=== PATIENT | female | born 1995 | race Caucasian/White ===

== ENCOUNTER 2016-07-22 02:31 | Emergency (ER) | payer BC ==
[~2016-07-22] VITALS: Ht 172.7 cm; Wt 67.2 kg
[2016-07-22] MEDS ORDERED: LIDOCAINE 1%, 20ML ONE (04:09)
[2016-07-22] MEDS ORDERED: DIPH,PERTUSS(ACELL),TET VAC/PF 0.5 ML IM-VACC ONE ×2 (04:20→04:30)
[2016-07-22] MEDS ORDERED: BACITRACIN ZINC OINT 500U/GM, 0.9 GM ONE (04:26)
[2016-07-22] MEDS ORDERED: LIDOCAINE 1%, 20ML SQ ONE (04:30)
[2016-07-22 04:34] VITALS: BP 109/57
== END 2016-07-22 04:36 | disposition home or self-care (01) ==
LOC: ED 04:30
DX: S61.012A Laceration without foreign body of left thumb without damage to nail, initial encounter (principal); W26.0XXA Contact with knife, initial encounter; Y93.89 Activity, other specified; Y92.89 Other specified places as the place of occurrence of the external cause; Y99.8 Other external cause status
CPT/HCPCS: 12001; 90471; 90715

== ENCOUNTER 2018-05-12 10:50 | Inpatient (IN) | payer BC ==
[~2018-05-12] VITALS: Ht 172.7 cm; Wt 75.9 kg
[2018-05-12] MEDS ORDERED: MISOPROSTOL 25 MCG TABLET ONE ×3 (13:00→18:11)
[2018-05-12] MEDS: MISOPROSTOL 25 MCG TABLET VG SCH ×2 (13:10→18:25)
[2018-05-12] MEDS ORDERED: OXYTOCIN 30U/ 0.9% NaCL 500ML 500 ML IV PRN (13:15)
[2018-05-12] MEDS ORDERED: OXYTOCIN 30U/ 0.9% NaCL 500ML 500 ML IV ONE (13:15)
[2018-05-12] MEDS: D5%-LACTATED RINGERS 1,000 ML IV SCH ×2 (13:15→21:15)
[2018-05-12] MEDS: LACTATED RINGERS 1,000 ML IV SCH ×4 (13:15→23:22)
[2018-05-12] MEDS ORDERED: OXYcodone/APAP 10/325MG TABLET PO PRN (13:30)
[2018-05-12] MEDS ORDERED: CALCIUM CARBONATE 500 MG TAB.CHEW PO PRN (13:30)
[2018-05-12] MEDS ORDERED: METOCLOPRAMIDE 5 MG/ML, 2ML IVPush PRN (13:30)
[2018-05-12] MEDS ORDERED: RHOGAM FROM BLOOD BANK 1 NOTE EA IM/IV PRN (13:30)
[2018-05-12] MEDS ORDERED: FENTANYL PF 100 MCG/2ML IVPush PRN (13:30)
[2018-05-12] MEDS ORDERED: IBUPROFEN 800 MG TABLET PO PRN (13:30)
[2018-05-12] MEDS ORDERED: SODIUM CITRATE/CITRIC ACID 30 ML UDC PO PRN (13:30)
[2018-05-12] MEDS ORDERED: ONDANSETRON 2MG/ML, 2ML IVPush PRN (13:30)
[2018-05-12] MEDS ORDERED: METHYLERGONOVINE 0.2 MG/ML IM PRN (13:30)
[2018-05-12] MEDS ORDERED: OXYcodone/APAP 5/325MG TABLET PO PRN (13:30)
[2018-05-12] MEDS ORDERED: SODIUM CHLORIDE FLUSH 10ML SYR IVF PRN (13:30)
[2018-05-12] MEDS ORDERED: morphine SULFATE 10 MG/ML, 1ML IVPush PRN (13:30)
[2018-05-12] MEDS ORDERED: ACETAMINOPHEN 325 MG TABLET PO PRN ×2 (13:30)
[2018-05-12] MEDS ORDERED: IBUPROFEN 600 MG TABLET PO PRN (13:30)
[2018-05-12] MEDS ORDERED: MISOPROSTOL 200 MCG TABLET PR PRN (13:30)
[2018-05-12 14:04] LABS: BASOPHILS # (AUTO) 0.04 x10^3/uL (0-0.1); BASOPHILS % (AUTO) 0 % (0-1); EOSINOPHILS # (AUTO) 0.03 x10^3/uL (0-0.4); EOSINOPHILS % (AUTO) 0 % (1-7); LYMPHOCYTES # (AUTO) 1.01 x10^3/uL (1-3.4); LYMPHOCYTES % (AUTO) 8 % (22-44); MD NO; MEAN CORPUSCULAR HEMOGLOBIN 30.6 pg (27.0-34.8); MEAN CORPUSCULAR HGB CONC 33.8 g/dL (32.4-35.8); MEAN CORPUSCULAR VOLUME 90.4 fL (80-100); MEAN PLATELET VOLUME 8.2 fL (7.4-10.4); MONOCYTES # (AUTO) 0.49 x10^3/uL (0.2-0.8); MONOCYTES % (AUTO) 4 % (2-9); NEUTROPHILS # (AUTO) 10.94 x10^3/uL (1.8-6.8); NEUTROPHILS % (AUTO) 88 % (42-75); PLATELET COUNT 289 x10^3/uL (130-400); RED BLOOD COUNT 5.11 x10^6/uL (3.82-5.3); RED CELL DISTRIBUTION WIDTH 12.5 % (9.6-15.2)
[2018-05-12 14:14] LABS: CREATININE 0.54 mg/dL (0.55-1.02)
[2018-05-12 14:23] LABS: FREE T4 (FREE THYROXINE) 0.94 ng/dL (0.76-1.46)
[2018-05-12] MEDS ORDERED: MISOPROSTOL 200 MCG TABLET ONE (14:42)
[2018-05-12] MEDS ORDERED: LIDOCAINE 1%, 20ML ONE (14:42)
[2018-05-12] MEDS ORDERED: OXYTOCIN 30U/ 0.9% NaCL 500ML 500 ML ONE (14:42)
[2018-05-12 15:30] LABS: INTERNATIONAL NORMALIZED RATIO 0.9 (0.93-1.1); PROTHROMBIN TIME 9.6 Seconds (9.6-11.5)
[2018-05-12 16:08] LABS: AMPHETAMINE SCREEN, URINE Negative (Negative); BARBITURATE SCREEN, URINE Negative (Negative); BENZODIAZEPINE SCREEN, URINE Negative (Negative); CANNABINOID SCREEN, URINE Positive (Negative); COCAINE SCREEN, URINE Negative (Negative); METHADONE SCREEN, URINE Negative (Negative); OPIATE SCREEN, URINE Negative (Negative)
[2018-05-12 19:30] VITALS: BP 109/62
[2018-05-12] MEDS ORDERED: FENTANYL PF 100 MCG/2ML ONE (22:50)
[2018-05-12] MEDS: FENTANYL PF 100 MCG/2ML IVPush PRN (22:54)
[2018-05-12 23:30] VITALS: BP 110/61
[2018-05-13] MEDS ORDERED: OXYTOCIN 30U/ 0.9% NaCL 500ML 500 ML IV PRN (00:06)
[2018-05-13] MEDS ORDERED: FENTANYL PF 100 MCG/2ML ONE ×3 (00:35→02:59)
[2018-05-13] MEDS: FENTANYL PF 100 MCG/2ML IVPush PRN ×3 (00:39→03:00)
[2018-05-13] MEDS: MISOPROSTOL 25 MCG TABLET VG SCH (01:30)
[2018-05-13] MEDS ORDERED: OXYTOCIN 30U/ 0.9% NaCL 500ML 500 ML IV SCH (03:29)
[2018-05-13] MEDS ORDERED: MISOPROSTOL 200 MCG TABLET PR PRN (03:30)
[2018-05-13] MEDS ORDERED: MEASLES,MUMPS&RUBELLA VACC/PF 0.5 ML SQ PRN (03:30)
[2018-05-13] MEDS ORDERED: OXYcodone/APAP 5/325MG TABLET PO PRN ×2 (03:30)
[2018-05-13] MEDS ORDERED: RHOGAM FROM BLOOD BANK 1 NOTE EA IM/IV ONE (03:30)
[2018-05-13] MEDS ORDERED: DOCUSATE 100 MG CAPSULE PO PRN (03:30)
[2018-05-13] MEDS ORDERED: IBUPROFEN 600 MG TABLET PO PRN (03:30)
[2018-05-13] MEDS ORDERED: METHYLERGONOVINE 0.2 MG/ML IM PRN (03:30)
[2018-05-13] MEDS ORDERED: ACETAMINOPHEN 325 MG TABLET PO PRN (03:30)
[2018-05-13] MEDS ORDERED: CARBOPROST TROMETHAMINE 250 MCG/ML, 1ML IM PRN (03:30)
[2018-05-13] MEDS ORDERED: OXYTOCIN 30U/ 0.9% NaCL 500ML 500 ML ONE (04:06)
[2018-05-13] MEDS: LACTATED RINGERS 1,000 ML IV SCH ×2 (05:15)
[2018-05-13] MEDS: D5%-LACTATED RINGERS 1,000 ML IV SCH (05:15)
[2018-05-13 05:52] VITALS: BP 124/75
[2018-05-13] MEDS ORDERED: PRENATAL VIT/IRON/FA 1 EACH TABLET PO SCH (09:00)
[2018-05-13 11:41] LABS: MEAN CORPUSCULAR HEMOGLOBIN 30.3 pg (27.0-34.8); MEAN CORPUSCULAR HGB CONC 33.8 g/dL (32.4-35.8); MEAN CORPUSCULAR VOLUME 89.6 fL (80-100); MEAN PLATELET VOLUME 7.7 fL (7.4-10.4); PLATELET COUNT 329 x10^3/uL (130-400); RED BLOOD COUNT 4.47 x10^6/uL (3.82-5.3); RED CELL DISTRIBUTION WIDTH 12.6 % (9.6-15.2)
[2018-05-13 12:12] LABS: BASOPHILS # (AUTO) 0.02 x10^3/uL (0-0.1); BASOPHILS % (AUTO) 0 % (0-1); EOSINOPHILS # (AUTO) 0.02 x10^3/uL (0-0.4); EOSINOPHILS % (AUTO) 0 % (1-7); LYMPHOCYTES # (AUTO) 1.39 x10^3/uL (1-3.4); LYMPHOCYTES % (AUTO) 8 % (22-44); MD SCAN; MONOCYTES # (AUTO) 0.96 x10^3/uL (0.2-0.8); MONOCYTES % (AUTO) 6 % (2-9); NEUTROPHILS # (AUTO) 15.09 x10^3/uL (1.8-6.8); NEUTROPHILS % (AUTO) 86 % (42-75)
[2018-05-13 20:28] VITALS: BP 114/63
[2018-05-13] MEDS ORDERED: SODIUM CITRATE/CITRIC ACID 30 ML UDC ONE (23:45)
[2018-05-13] MEDS ORDERED: METOCLOPRAMIDE 5 MG/ML, 2ML ONE (23:45)
== END 2018-05-14 13:05 | disposition home or self-care (01) | DRG 807 ==
LOC: LDOP 10:50 → LDIP 13:02
PROVIDERS: ADMIT Obstetrics & Gynecology; ATTEND Obstetrics & Gynecology
PROC: 10E0XZZ Delivery of Products of Conception, External Approach (ICD-10-PCS; principal; 2018-05-13)
PROC: 3E033VJ Introduction of Other Hormone into Peripheral Vein, Percutaneous Approach (ICD-10-PCS; 2018-05-13)
DX: O36.4XX0 Maternal care for intrauterine death, not applicable or unspecified (principal); Z37.1 Single stillbirth; O32.1XX0 Maternal care for breech presentation, not applicable or unspecified; Z3A.27 27 weeks gestation of pregnancy; Z87.891 Personal history of nicotine dependence
CPT/HCPCS: 36415; 76815; 80074; 80307; 81241; 82565; 83036; 84439; 84443; 85025; 85300; 85301; 85384; 85460; 85598; 85610; 85613; 85670; 85730; 85732; 86146; 86147; 86644; 86695; 86696; 86747; 86762; 86777; 86850; 86900; 87252; 88305; G0378; J2790; J3010; J2590; J7120

== ENCOUNTER 2019-07-30 16:45 | Emergency (ER) | payer BC, OTHER ==
[~2019-07-30] VITALS: Ht 172.7 cm; Wt 62.1 kg
[2019-07-30] MEDS ORDERED: PRENATAL VITAMINS PO (17:02)
--- NOTE | 2019-07-30 17:05 | NUR ---
PT AMBULATED TO ROOM, CHANGED INTO GOWN RESTING ON GURNEY, NAD, P/W/D, RESP WNL, CALL LIGHT WITHIN REACH, MAEx4, FCS no SOB, WCTM.
--- NOTE | 2019-07-30 17:11 | NUR ---
Dominic GONZALEZ at BS for eval and discussing POC. Pt ambulated with a smooth and steady gait to and from restroo, sent to lab, lab at BS. NAD, RESP WNL, given warm blanket for comfort. WCTM. waiting for lab results.
[2019-07-30 17:25] LABS: BASOPHILS # (AUTO) 0.03 x10^3/uL (0-0.1); BASOPHILS % (AUTO) 0 % (0-1); EOSINOPHILS # (AUTO) 0.11 x10^3/uL (0-0.4); EOSINOPHILS % (AUTO) 1 % (1-7); LYMPHOCYTES # (AUTO) 1.97 x10^3/uL (1-3.4); LYMPHOCYTES % (AUTO) 21 % (22-44); MD NO; MEAN CORPUSCULAR HEMOGLOBIN 30.6 pg (27.0-34.8); MEAN CORPUSCULAR HGB CONC 34.2 g/dL (32.4-35.8); MEAN CORPUSCULAR VOLUME 89.5 fL (80-100); MEAN PLATELET VOLUME 7.8 fL (7.4-10.4); MONOCYTES # (AUTO) 0.62 x10^3/uL (0.2-0.8); MONOCYTES % (AUTO) 7 % (2-9); NEUTROPHILS # (AUTO) 6.55 x10^3/uL (1.8-6.8); NEUTROPHILS % (AUTO) 71 % (42-75); PLATELET COUNT 302 x10^3/uL (130-400); RED BLOOD COUNT 4.51 x10^6/uL (3.82-5.3); RED CELL DISTRIBUTION WIDTH 13.5 % (9.6-15.2)
[2019-07-30 17:30] LABS: MICROSCOPIC NOT IND
[2019-07-30 17:37] LABS: ALANINE AMINOTRANSFERASE 21 U/L (12-78); ALBUMIN 3.8 g/dL (3.4-5.0); ANION GAP 6 mmol/L (5-15); CALCIUM 9.3 mg/dL (8.5-10.1); CHLORIDE 107 mmol/L (98-107); CREATININE 0.61 mg/dL (0.55-1.02); CULTURE INDICATED? NO
[2019-07-30 17:40] LABS: ALKALINE PHOSPHATASE 47 U/L (45-117); BILIRUBIN,TOTAL 0.4 mg/dL (0.2-1.0); TOTAL PROTEIN 7.7 g/dL (6.4-8.2)
--- NOTE | 2019-07-30 17:52 | NUR ---
Pt resting in [place], JORDAN, RESP WNL, VSS. Pt to US via [place].
[2019-07-30 18:29] VITALS: BP 106/63
--- NOTE | 2019-07-30 18:31 | NUR ---
Patient given discharge instructions and they have confirmed that they understand the instructions. Patient ambulatory with steady gait. Denies additional questions.
== END 2019-07-30 18:41 | disposition home or self-care (01) ==
LOC: ED 17:32
DX: O26.891 Other specified pregnancy related conditions, first trimester (principal); R10.13 Epigastric pain; Z87.891 Personal history of nicotine dependence; Z3A.11 11 weeks gestation of pregnancy
CPT/HCPCS: 36415; 76801; 80053; 81003; 83690; 85025; 99284

== ENCOUNTER 2019-12-02 17:50 | Outpatient (CLI) | payer BC, OTHER ==
[~2019-12-02] VITALS: Ht 172.7 cm; Wt 76.3 kg
[~2019-12-02 17:50] MED LIST: PRENATAL VITAMINS PO
[2019-12-02 18:25] VITALS: BP 117/66
[2019-12-02 18:28] LABS: MICROSCOPIC INDICATED
[2019-12-02] MEDS ORDERED: ASPI-496 PO (18:39)
[2019-12-02 19:33] LABS: BASOPHILS # (AUTO) 0.01 x10^3/uL (0-0.1); BASOPHILS % (AUTO) 0 % (0-1); EOSINOPHILS # (AUTO) 0.06 x10^3/uL (0-0.4); EOSINOPHILS % (AUTO) 1 % (1-7); LYMPHOCYTES % (AUTO) 14 % (22-44); MD NO; MEAN CORPUSCULAR HGB CONC 33.7 g/dL (32.4-35.8); MEAN PLATELET VOLUME 7.8 fL (7.4-10.4); MONOCYTES # (AUTO) 0.56 x10^3/uL (0.2-0.8); MONOCYTES % (AUTO) 5 % (2-9); NEUTROPHILS # (AUTO) 9.44 x10^3/uL (1.8-6.8); NEUTROPHILS % (AUTO) 80 % (42-75); PLATELET COUNT 233 x10^3/uL (130-400); RED CELL DISTRIBUTION WIDTH 13.1 % (9.6-15.2)
== END 2019-12-02 20:45 | disposition home or self-care (01) ==
LOC: LDOP 17:50
PROVIDERS: ATTEND Obstetrics & Gynecology
DX: O26.893 Other specified pregnancy related conditions, third trimester (principal); R10.9 Unspecified abdominal pain; Z3A.29 29 weeks gestation of pregnancy
CPT/HCPCS: 36415; 59025; 76705; 81001; 85025; 87086

== ENCOUNTER 2020-01-24 11:13 | Outpatient (CLI) | payer BC, OTHER ==
[~2020-01-24 11:13] MED LIST changes: +ASPI-496 PO
[2020-01-24 11:19] VITALS: BP 117/69
== END 2020-01-24 11:56 | disposition home or self-care (01) ==
LOC: LDOP 11:13
PROVIDERS: ATTEND Obstetrics & Gynecology
DX: O36.8130 Decreased fetal movements, third trimester, not applicable or unspecified (principal); Z3A.36 36 weeks gestation of pregnancy
CPT/HCPCS: 59025

== ENCOUNTER 2020-01-29 09:15 | Outpatient (CLI) | payer BC, OTHER ==
[~2020-01-29] VITALS: Ht 172.7 cm; Wt 80.9 kg
== END 2020-01-29 09:23 | disposition home or self-care (01) ==
LOC: LDOP 09:15
PROVIDERS: ATTEND Obstetrics & Gynecology
DX: O80 Encounter for full-term uncomplicated delivery (principal); Z3A.37 37 weeks gestation of pregnancy
CPT/HCPCS: 59025

== ENCOUNTER 2020-02-04 11:12 | Outpatient (CLI) | payer BC, OTHER | END 2020-02-04 12:15 | disposition home or self-care (01) | LOC: LDOP 11:12 | PROVIDERS: ATTEND Obstetrics & Gynecology | DX: O36.8130 Decreased fetal movements, third trimester, not applicable or unspecified (principal); Z3A.38 38 weeks gestation of pregnancy | CPT/HCPCS: 59025 ==

== ENCOUNTER 2020-02-08 12:12 | Inpatient (IN) | payer BC, OTHER ==
[~2020-02-08] VITALS: Ht 172.7 cm; Wt 83.0 kg
[2020-02-08] MEDS ORDERED: LIDOCAINE 1%, 20ML ONE (23:14)
[2020-02-08] MEDS ORDERED: MISOPROSTOL 25 MCG TABLET ONE (23:15)
[2020-02-08] MEDS ORDERED: OXYTOCIN 30U/ 0.9% NaCL 500ML 500 ML ONE (23:15)
[2020-02-08] MEDS ORDERED: MISOPROSTOL 200 MCG TABLET ONE (23:15)
[2020-02-08] MEDS ORDERED: D5%-LACTATED RINGERS 1,000 ML IV SCH (23:30)
[2020-02-08] MEDS ORDERED: TERBUTALINE 1 MG/ML, 1ML SQ PRN (23:30)
[2020-02-08] MEDS ORDERED: ALUMINUM/MAG/SIMETHICONE 30 ML UDC PO PRN (23:30)
[2020-02-08] MEDS ORDERED: OXYTOCIN 30U/ 0.9% NaCL 500ML 500 ML IV PRN (23:30)
[2020-02-08] MEDS ORDERED: SODIUM CHLORIDE FLUSH 10ML SYR IVF PRN (23:30)
[2020-02-08] MEDS ORDERED: METOCLOPRAMIDE 5 MG/ML, 2ML IVPush PRN (23:30)
[2020-02-08] MEDS ORDERED: MISOPROSTOL 25 MCG TABLET VG PRN (23:30)
[2020-02-08] MEDS ORDERED: ONDANSETRON 2MG/ML, 2ML IVPush PRN (23:30)
[2020-02-08] MEDS ORDERED: MISOPROSTOL 25 MCG TABLET PO PRN (23:30)
[2020-02-08] MEDS ORDERED: TERBUTALINE 1 MG/ML, 1ML IVPush PRN (23:30)
[2020-02-08] MEDS ORDERED: FENTANYL PF 100 MCG/2ML IV PRN (23:30)
[2020-02-08] MEDS ORDERED: OXYTOCIN 30U/ 0.9% NaCL 500ML 500 ML IV ONE (23:30)
[2020-02-08] MEDS ORDERED: CALCIUM CARBONATE 500 MG TAB.CHEW PO PRN (23:30)
[2020-02-08] MEDS ORDERED: LACTATED RINGERS 1,000 ML IV SCH (23:30)
[2020-02-08 23:37] LABS: BASOPHILS % (AUTO) 0 % (0-1); EOSINOPHILS % (AUTO) 1 % (1-7); LYMPHOCYTES % (AUTO) 18 % (22-44); MEAN CORPUSCULAR HEMOGLOBIN 30.9 pg (27.0-34.8); MEAN CORPUSCULAR HGB CONC 33.9 g/dL (32.4-35.8); MEAN PLATELET VOLUME 7.9 fL (7.4-10.4); MONOCYTES % (AUTO) 8 % (2-9); NEUTROPHILS % (AUTO) 73 % (42-75); PLATELET COUNT 263 x10^3/uL (130-400); RED BLOOD COUNT 4.44 x10^6/uL (3.82-5.3); RED CELL DISTRIBUTION WIDTH 12.8 % (9.6-15.2)
[2020-02-08 23:38] LABS: MD NO
[2020-02-09] MEDS ORDERED: MISOPROSTOL 25 MCG TABLET ONE (00:03)
[2020-02-09] MEDS ORDERED: FENTANYL PF 100 MCG/2ML ONE ×2 (14:48→16:58)
[2020-02-09] MEDS: FENTANYL PF 100 MCG/2ML IVPush PRN ×2 (14:50→17:01)
[2020-02-09] MEDS ORDERED: LIDOCAINE 1%, 20ML ONE (19:16)
[2020-02-09] MEDS ORDERED: ACETAMINOPHEN 325 MG TABLET PO PRN (20:00)
[2020-02-09] MEDS ORDERED: DOCUSATE 100 MG CAPSULE PO PRN (20:00)
[2020-02-09] MEDS ORDERED: MISOPROSTOL 200 MCG TABLET PR PRN (20:00)
[2020-02-09] MEDS ORDERED: ONDANSETRON 2MG/ML, 2ML IV PRN (20:00)
[2020-02-09] MEDS ORDERED: SIMETHICONE 80 MG CHEW TAB PO PRN (20:00)
[2020-02-09] MEDS ORDERED: OXYcodone IR 5MG TABLET PO PRN (20:00)
[2020-02-09] MEDS ORDERED: IBUPROFEN 600 MG TABLET ONE (20:40)
[2020-02-09] MEDS ORDERED: OXYTOCIN 30U/ 0.9% NaCL 500ML 500 ML ONE (20:40)
[2020-02-09] MEDS: OXYTOCIN 30U/ 0.9% NaCL 500ML 500 ML IV SCH (20:53)
[2020-02-09 22:00] VITALS: BP 106/65
[2020-02-10 02:15] VITALS: BP 106/65
[2020-02-10] MEDS: IBUPROFEN 800 MG TABLET PO PRN ×2 (03:29→11:05)
[2020-02-10] MEDS: OXYTOCIN 30U/ 0.9% NaCL 500ML 500 ML IV SCH ×2 (06:00→16:00)
[2020-02-10 06:45] LABS: BASOPHILS % (AUTO) 0 % (0-1); EOSINOPHILS % (AUTO) 0 % (1-7); LYMPHOCYTES % (AUTO) 10 % (22-44); MEAN CORPUSCULAR HEMOGLOBIN 31.1 pg (27.0-34.8); MEAN CORPUSCULAR HGB CONC 33.8 g/dL (32.4-35.8); MEAN PLATELET VOLUME 8.3 fL (7.4-10.4); MONOCYTES % (AUTO) 6 % (2-9); NEUTROPHILS % (AUTO) 84 % (42-75); PLATELET COUNT 281 x10^3/uL (130-400); RED BLOOD COUNT 4.34 x10^6/uL (3.82-5.3); RED CELL DISTRIBUTION WIDTH 12.7 % (9.6-15.2)
[2020-02-10 06:50] LABS: MD NO
[2020-02-10 07:47] VITALS: BP 102/63
[2020-02-10] MEDS ORDERED: PRENATAL VIT/IRON/FA 1 EACH TABLET PO SCH (09:00)
[2020-02-10 12:05] VITALS: BP 105/65
[2020-02-10 16:16] VITALS: BP 108/73
[2020-02-10] MEDS ORDERED: IBUP-1223 PO (17:39)
== END 2020-02-10 18:30 | disposition home or self-care (01) | DRG 807 ==
LOC: LDIP 23:01 → 2NW 02-09 22:00
PROVIDERS: ADMIT Obstetrics & Gynecology; ATTEND Obstetrics & Gynecology
PROC: 10E0XZZ Delivery of Products of Conception, External Approach (ICD-10-PCS; principal; 2020-02-09)
PROC: 0KQM0ZZ Repair Perineum Muscle, Open Approach (ICD-10-PCS; 2020-02-09)
PROC: 10907ZC Drainage of Amniotic Fluid, Therapeutic from Products of Conception, Via Natural or Artificial Opening (ICD-10-PCS; 2020-02-09)
PROC: 3E0234Z Introduction of Serum, Toxoid and Vaccine into Muscle, Percutaneous Approach (ICD-10-PCS; 2020-02-10)
DX: O99.02 Anemia complicating childbirth (principal); Z37.0 Single live birth; Z3A.39 39 weeks gestation of pregnancy; Z91.040 Latex allergy status; Z87.891 Personal history of nicotine dependence; D64.9 Anemia, unspecified; O70.1 Second degree perineal laceration during delivery
CPT/HCPCS: 36415; 85025; 85461; 86592; 86900; 87635; G0378; J2790; J3010; J2590; J7120

== ENCOUNTER 2020-03-03 15:37 | Emergency (ER) | payer BC, OTHER ==
[~2020-03-03] VITALS: Ht 172.7 cm; Wt 72.0 kg
[~2020-03-03 15:37] MED LIST changes: +IBUP-1223 PO
[2020-03-03 15:46] VITALS: BP 95/63
--- NOTE | 2020-03-03 15:58 | NUR ---
PT SEEN BY DR IRAHETA IN TRIAGE.
--- NOTE | 2020-03-03 16:00 | NUR ---
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 INFO GIVEN TO PT.
--- NOTE | 2020-03-03 16:22 | NUR ---
Patient/Caregiver given discharge instructions and they have confirmed that they understand the instructions. Patient ambulatory with steady gait.
== END 2020-03-03 16:24 | disposition home or self-care (01) ==
LOC: ED 16:00
DX: N61.0 Mastitis without abscess (principal)
CPT/HCPCS: 99283